=== PATIENT | female | born 1985 | race Caucasian/White ===

== ENCOUNTER 2022-03-12 21:04 | Emergency (ER) | payer OTHER ==
[2022-03-12 21:09] VITALS: BP 143/77; PULSE 79; RESP 18; TEMP 98.3; BMI 25.4
[2022-03-12] MEDS ORDERED: ACETAMINOPHEN 1000 MG/100 ML BAG IVPB ONE (22:16)
[2022-03-12] MEDS ORDERED: DEXTROSE 5%-NORMAL SALINE 1,000 ML IV STA (22:16)
[2022-03-12] MEDS ORDERED: ACETAMINOPHEN INJECTION 100 ML IVPB ONE (22:35)
[2022-03-12 23:01] LABS: BASO % 0.3 % (0-2.0); EOS % 0.9 % (0-4.5); HEMOGLOBIN 13.4 GM/dL (10.7-15.3); LYMPH % 31.9 % (8-40); MCH 30.4 pg (25.7-33.7); MCHC 33.4 g/dl (32.0-36.0); MEAN PLT VOLUME 7.4 fl (7.5-11.1); MONO % 8.2 % (3.8-10.2); NEUT % 58.7 % (42.8-82.8); PLATELET COUNT 310 10^3/uL (134-434); WHITE BLOOD COUNT 6.7 K/mm3 (4.0-10.0)
[2022-03-12 23:06] LABS: INR 0.91 (0.83-1.09); PROTHROMBIN TIME (PATIENT) 10.4 SEC (9.7-13.0)
[2022-03-12 23:09] LABS: ACTIVATED PTT 27.5 SECONDS (25.2-36.5)
[2022-03-12 23:21] LABS: CALCIUM 9.1 mg/dL (8.5-10.1)
[2022-03-12 23:22] LABS: ALBUMIN 3.3 g/dl (3.4-5.0); BLOOD UREA NITROGEN 6.4 mg/dL (7-18)
[2022-03-12 23:25] LABS: CREATININE 0.5 mg/dL (0.55-1.3)
[2022-03-12 23:26] LABS: BILIRUBIN,TOTAL 0.1 mg/dL (0.2-1); TOT PROT 7.1 g/dl (6.4-8.2)
[2022-03-13 00:39] LABS: HCG,QUALITATIVE URINE Positive
[2022-03-13 00:43] LABS: EPI CELLS 7 /uL (0-25.1); HYALINE CASTS 0 /uL (0-3.1); PH,URINE 6.5 (5.0-8.0); URINE APPEARANCE CLEAR; URINE BACTERIA 769 /uL (0-1359); URINE BILIRUBIN NEGATIVE (NEGATIVE); URINE COLOR YELLOW; URINE GLUCOSE (UA) NEGATIVE (NEGATIVE); URINE KETONE NEGATIVE (NEGATIVE); URINE LEUK ESTERASE TRACE (NEGATIVE); URINE NITRITE NEGATIVE (NEGATIVE); URINE PROTEIN NEGATIVE (NEGATIVE); URINE RBC 1 /uL (0-23.9); URINE UROBILINOGEN 0.2 mg/dL (0.2-1.0); URINE WBC 15 /uL (0-25.8)
== END 2022-03-13 03:29 | disposition home or self-care (01) ==
LOC: JER 21:04
PROC: 3E0333Z Introduction of Anti-inflammatory into Peripheral Vein, Percutaneous Approach (ICD-10-PCS; principal; 2022-03-12)
PROC: 3E0337Z Introduction of Electrolytic and Water Balance Substance into Peripheral Vein, Percutaneous Approach (ICD-10-PCS; 2022-03-12)
DX: O46.91 Antepartum hemorrhage, unspecified, first trimester (principal); Z3A.12 12 weeks gestation of pregnancy
CPT/HCPCS: 36415; 76817-TC; 80053; 81003; 84702; 84703; 85025; 85610; 85730; 86850; 86900; 86901; 87086; 87186; 99291

== ENCOUNTER 2023-11-16 18:33 | Emergency (ER) | payer OTHER ==
[2023-11-16 18:45] VITALS: BP 119/77; PULSE 78; RESP 18; TEMP 98.5; BMI 29.2
[2023-11-16] MEDS ORDERED: IBUPROFEN 400 MG TABLET (FP) PO ONE (19:31)
[2023-11-16] MEDS: IBUPROFEN 400 MG TABLET (FP) PO ONE (19:34)
== END 2023-11-16 19:44 | disposition home or self-care (01) ==
LOC: JER 18:33 → JERFT 18:33
DX: H60.502 Unspecified acute noninfective otitis externa, left ear (principal); H92.02 Otalgia, left ear
CPT/HCPCS: 99283-25